=== PATIENT | male | born 1940 | race Hispanic/Latino ===

== ENCOUNTER 2021-11-09 21:05 | Emergency (ER) | payer MEDICARE, OTHER ==
[2021-11-09] MEDS ORDERED: IPRATROPIUM 0.02% NEBU 2.5 ML IH ONE (23:26)
[2021-11-09] MEDS ORDERED: ALBUTEROL 2.5 MG/3 ML NEBU IH ONE (23:26)
[2021-11-10 00:17] LABS: Hematocrit 39.2 % (35.5-45.6); Hemoglobin 12.3 gm/dl (11.8-15.2); Mean Corpuscular HGB Conc 31 % (32-34); Mean Corpuscular Volume 99 fl (84-94); Platelet Count 198 K/mm3 (140-440); Red Blood Count 3.97 M/mm3 (3.65-5.03); Red Cell Distribution Width 16.6 % (13.2-15.2)
[2021-11-10 00:38] LABS: Alanine Aminotransferase 16 units/L (7-56); Albumin 2.9 g/dL (3.9-5); BUN/Creatinine Ratio 41; Blood Urea Nitrogen 41 mg/dL (9-20); Calcium 8.2 mg/dL (8.4-10.2); Creatine Kinase MB 1.5 ng/mL (0.0-4.0); Hemolysis Index 11
--- NOTE | 2021-11-10 00:52 | XRay Report ---
XR chest 1V ap INDICATION / CLINICAL INFORMATION: Dyspnea. COMPARISON: 11/17/2012 FINDINGS: SUPPORT DEVICES: Left chest wall port catheter tip terminates over the cavoatrial junction. HEART /PULMONARY VASCULATURE: Cardiac silhouette is accentuated by low lung volumes. The upper medias tinum appears prominent, though this was also present on prior exam from 2012. LUNGS / PLEURA: Diminished lung volumes. No focal airspace consolidation. There is suggestion of smal l bibasilar pleural effusions. No pneumothorax. ADDITIONAL FINDINGS: No significant additional findings. IMPRESSION: 1. Widening of the upper mediastinum. This was present to lesser degree in 2013 and may be related to prominent vasculature. However, further evaluation with CTA of the chest is recommended. 2. Diminished lung volumes accentuate findings and the chest. There are suspected small bibasilar ple ural effusions. No definite focal infiltrate. Signer Name: Calvin Huerta MD Signed: 11/10/2021 12:47 AM Workstation Name: [id number]
[2021-11-10 01:04] LABS: INR 0.97 (0.87-1.13)
[2021-11-10] MEDS ORDERED: IPRATROPIUM 0.02% NEBU 2.5 ML IH ONE (01:41)
[2021-11-10] MEDS ORDERED: ALBUTEROL 2.5 MG/3 ML NEBU IH ONE (01:41)
[2021-11-10 01:58] LABS: Band Neutrophils # (Manual) 0.7 K/mm3; Basophils % (Manual) 0 % (0.0-1.8); Eosinophils % (Manual) 0 % (0.0-4.3); Total Cells Counted 100
[2021-11-10 01:59] LABS: Anisocytosis 1+; Macrocytosis Few; Ovalocytes 1+; Platelet Estimate Consistent w Auto; Poikilocytosis 1+
--- NOTE | 2021-11-10 02:47 | Cat Scan Report ---
CT angio chest INDICATION / CLINICAL INFORMATION: Abnormal x ray, POSSIBLE DISSECTION. TECHNIQUE: Axial CT images were obtained through the chest after injection of 100 cc of Omnipaque 350 IV contrast. 3 plane MIP and/or 3D reconstructions were produced. All CT scans at this location are performed using CT dose reduction for ALARA by means of automated exposure control. COMPARISON: Same-day chest radiograph. CT of the chest from 11/17/2012 FINDINGS: PULMONARY ARTERIES: No central or segmental pulmonary embolus. THORACIC AORTA: The thoracic aorta is moderately calcified and tortuous. No evidence of aneurysm or d issection. No acute abnormality. HEART: Mild cardiac enlargement with trace pericardial effusion CORONARY ARTERY CALCIFICATION: No significant calcification. LYMPHADENOPATHY: No significant thoracic lymphadenopathy. LUNGS/PLEURA: There are bandlike opacities within both lower lobes, likely reflecting scarring or vol ume loss. No evidence of acute airspace disease. Trace left pleural effusion. No pneumothorax. OTHER FINDINGS: None. UPPER ABDOMEN: There is mural thickening of the partially imaged ascending colon with pericolonic inf lammatory stranding. Trace free fluid along the right paracolic gutter. Moderate stool in the remaini ng colon. No other acute findings. SKELETAL SYSTEM: Diffuse osteopenia with multilevel compression fractures, many of which have underwe nt vertebroplasty. Multiple bilateral remote rib fractures. No evidence of acute process. IMPRESSION: 1. No acute findings in the chest. No evidence of pulmonary embolism or aortic dissection. 2. Partially imaged ascending colon demonstrates significant mural thickening and inflammatory strand ing, consistent with colitis. 3. Chronic and incidental findings as above. Signer Name: Calvin Huerta MD Signed: 11/10/2021 2:43 AM Workstation Name: [id number]
[2021-11-10] MEDS ORDERED: LORazepam 2 MG/ML VIAL IV ONE (03:45)
--- NOTE | 2021-11-10 04:34 | Emergency Department Report ---
ED Shortness of Breath HPI - General Chief Complaint: Dyspnea/Respdistress Stated Complaint: SOB/COPD EXACERBATION Time Seen by Provider: 11/09/21 23:26 Source: EMS Mode of arrival: Stretcher Limitations: No Limitations - History of Present Illness Initial Comments: SOB, currently diagnosed with pneumonia and taking abx from [facility]. HX COPD/ 3L=99%. Expiratory breathing. Albuterol 2.5 and breathing became easier, but still expiratory wheezing. MD Complaint: shortness of breath -: days(s) Consistency: intermittent Improves With: nothing, rest Worsens With: exertion Associated Symptoms: denies other symptoms - Related Data Home Medications Medication Instructions Recorded Confirmed Last Taken ALPRAZolam [Xanax TAB] 0.5 mg PO BID PRN 04/11/18 04/11/18 04/11/18 0.5mg Atorvastatin Calcium 20 mg PO QHS 04/11/18 04/11/18 04/10/18 20 mg Mirtazapine 15 mg PO DAILY 04/11/18 04/11/18 04/10/18 15 mg Omeprazole 20 mg PO DAILY 04/11/18 04/11/18 04/10/18 0.4mg Tamsulosin [Flomax] 0.4 mg PO DAILY 04/11/18 04/11/18 04/10/18 0.4mg carvediloL [Carvedilol] 25 mg PO BID 04/11/18 04/11/18 04/11/18 25 mg predniSONE [Deltasone] 20 mg PO DAILY 04/11/18 04/11/18 04/10/18 20 mg Allergies Allergy/AdvReac Type Severity Reaction Status Date / Time No Known Allergies Allergy Verified 05/26/15 12:12 ED Review of Systems ROS: Stated complaint: SOB/COPD EXACERBATION Other details as noted in HPI Constitutional: denies: chills, fever Eyes: denies: eye pain, eye discharge, vision change ENT: denies: ear pain, throat pain Respiratory: denies: cough, shortness of breath, wheezing Cardiovascular: denies: chest pain, palpitations Endocrine: no symptoms reported Gastrointestinal: denies: abdominal pain, nausea, diarrhea Genitourinary: denies: urgency, dysuria Musculoskeletal: denies: back pain, joint swelling, arthralgia Skin: denies: rash, lesions Neurological: denies: headache, weakness, paresthesias Psychiatric: denies: anxiety, depression Hematological/Lymphatic: denies: easy bleeding, easy bruising ED Past Medical Hx - Past Medical History Hx Hypertension: Yes (on carvedilol) Hx GERD: Yes Hx Arthritis: Yes Hx Kidney Stones: Yes Hx COPD: Yes - Social History Smoking Status: Unknown if ever smoked - Medications Home Medications: Home Medications Medication Instructions Recorded Confirmed Last Taken Type ALPRAZolam [Xanax TAB] 0.5 mg PO BID PRN 04/11/18 04/11/18 04/11/18 History 0.5mg Atorvastatin Calcium 20 mg PO QHS 04/11/18 04/11/18 04/10/18 History 20 mg Mirtazapine 15 mg PO DAILY 04/11/18 04/11/18 04/10/18 History 15 mg Omeprazole 20 mg PO DAILY 04/11/18 04/11/18 04/10/18 History 0.4mg Tamsulosin [Flomax] 0.4 mg PO DAILY 04/11/18 04/11/18 04/10/18 History 0.4mg carvediloL [Carvedilol] 25 mg PO BID 04/11/18 04/11/18 04/11/18 History 25 mg predniSONE [Deltasone] 20 mg PO DAILY 04/11/18 04/11/18 04/10/18 History 20 mg ED Physical Exam - General Limitations: No Limitations General appearance: alert, anxious - Head Head exam: Present: atraumatic, normocephalic - Eye Eye exam: Present: normal appearance - ENT ENT exam: Present: mucous membranes moist - Neck Neck exam: Present: normal inspection - Respiratory Respiratory exam: Present: normal lung sounds bilaterally. Absent: respiratory distress - Cardiovascular Cardiovascular Exam: Present: regular rate, normal rhythm. Absent: systolic murmur, diastolic murmur, rubs, gallop - GI/Abdominal GI/Abdominal exam: Present: soft, normal bowel sounds - Rectal Rectal exam: Present: deferred - Extremities Exam Extremities exam: Present: normal inspection - Back Exam Back exam: Present: normal inspection - Neurological Exam Neurological exam: Present: alert, oriented X3 - Psychiatric Psychiatric exam: Present: normal affect, normal mood - Skin Skin exam: Present: warm, dry, intact, normal color. Absent: rash ED Course Vital Signs 0711/09/21 11/10/21 21:37 23:50 00:00 Temperature 99.4 F Pulse Rate 95 H 99 H Pulse Rate [ Anterior Bilateral Throughout] Respiratory 20 20 25 H Rate Respiratory Rate [Anterior Bilateral Throughout] Blood Pressure 138/91 134/85 O2 Sat by Pulse 99 99 Oximetry 11/10/21 11/10/21 11/10/21 00:12 00:16 00:30 Temperature Pulse Rate 98 H 98 H Pulse Rate [ Anterior Bilateral Throughout] Respiratory 29 H 18 30 H Rate Respiratory Rate [Anterior Bilateral Throughout] Blood Pressure 143/94 130/92 O2 Sat by Pulse 99 99 97 Oximetry 11/10/21 11/10/21 11/10/21 00:46 01:00 01:16 Temperature Pulse Rate 102 H 105 H 94 H Pulse Rate [ Anterior Bilateral Throughout] Respiratory 17 26 H 22 Rate Respiratory Rate [Anterior Bilateral Throughout] Blood Pressure 131/92 147/101 136/98 O2 Sat by Pulse 98 98 96 Oximetry 11/10/21 11/10/21 11/10/21 01:30 01:40 01:46 Temperature Pulse Rate 93 H 103 H Pulse Rate [ 104 H Anterior Bilateral Throughout] Respiratory 17 16 Rate Respiratory 18 Rate [Anterior Bilateral Throughout] Blood Pressure 137/86 147/90 O2 Sat by Pulse 97 100 Oximetry 11/10/21 11/10/21 11/10/21 02:00 02:16 02:30 Temperature Pulse Rate 104 H Pulse Rate [ Anterior Bilateral Throughout] Respiratory 17 Rate Respiratory Rate [Anterior Bilateral Throughout] Blood Pressure 147/90 153/90 126/71 O2 Sat by Pulse 100 99 100 Oximetry 11/10/21 02:46 Temperature Pulse Rate Pulse Rate [ Anterior Bilateral Throughout] Respiratory Rate Respiratory Rate [Anterior Bilateral Throughout] Blood Pressure 107/53 O2 Sat by Pulse 99 Oximetry ED Medical Decision Making - Lab Data Result diagrams: 11/09/21 23:55 11/09/21 23:55 - EKG Data -: EKG Interpreted by Ok EKG shows normal: sinus rhythm Rate: normal - EKG Data Interpretation: no acute changes - Radiology Data Radiology results: report reviewed, image reviewed - Medical Decision Making work up showed elevated wbc , history of MM , trop negative ct scan negative for PE , dissection pneumonia or HF , vss , o2 sat 99 on 2 litres which his normal , ativan given with good results Critical care attestation.: If time is entered above; I have spent that time in minutes in the direct care of this critically ill patient, excluding procedure time. ED Disposition Clinical Impression: SOB (shortness of breath), Dyspnea Disposition: 01 HOME / SELF CARE / HOMELESS Is pt being admited?: No Does the pt Need Aspirin: No Condition: Stable Instructions: Shortness of Breath, Adult, [id number], Shortness of Breath, Adult Referrals: SUNIL ROSSI MD [Primary Care Provider] - 3-5 Days
[2021-11-10 05:10] VITALS: BP 123/69
--- NOTE | 2021-11-10 17:55 | Electrocardiograph Report ---
[facility], [place] Test Date: 2021-11-09 Test Time: 23:57:13 Pat Name: LEIGHTON FALCON Department: Room: Gender: M [employer] Operator: FRED : 1940 Requested By: TEGAN MAX Order Number: [id number] Reading MD: Dionicio Coleman Measurements Intervals [place] Rate: 99 P: 17 PA: 139 QRS: -11 QRSD: 87 T: 61 QT: 318 QTc: 408 Interpretive Statements Sinus rhythm Consider left ventricular hypertrophy No previous ECG available for comparison Electronically Signed On 11-10-2021 17:54:41 EDT by Dionicio Coleman
== END 2021-11-10 05:09 | disposition home or self-care (01) ==
LOC: ED 21:05
DX: R06.02 Shortness of breath (principal); J44.9 Chronic obstructive pulmonary disease, unspecified; I10 Essential (primary) hypertension; M19.90 Unspecified osteoarthritis, unspecified site; K21.9 Gastro-esophageal reflux disease without esophagitis; Z87.442 Personal history of urinary calculi
CPT/HCPCS: 36415; 71045; 71275; 80053; 82550; 82553; 83690; 84484; 85007; 85025; 85610; 87040; 93005; 94640; 96374; 99285; J2060; Q9967; 94644